=== PATIENT | male | born 1940 ===

== ENCOUNTER 2018-07-12 22:47 | Emergency (ER) | payer OTHER ==
[~2018-07-12] VITALS: Ht 165.1 cm; Wt 61.2 kg
[~2018-07-12 22:47] MED LIST: NABUMETONE750 MG PO
[2018-07-13] MEDS ORDERED: NABUMETONE750 MG PO (02:47)
[2018-07-13] MEDS ORDERED: DUI500 PO (02:47)
== END 2018-07-13 02:53 | disposition home or self-care (01) ==
LOC: ER 22:47
DX: S31.010A Laceration without foreign body of lower back and pelvis without penetration into retroperitoneum, initial encounter (principal); S20.211A Contusion of right front wall of thorax, initial encounter; S80.02XA Contusion of left knee, initial encounter; S79.811A Other specified injuries of right hip, initial encounter; W18.2XXA Fall in (into) shower or empty bathtub, initial encounter; Y93.E1 Activity, personal bathing and showering; Y92.012 Bathroom of single-family (private) house as the place of occurrence of the external cause; Y99.8 Other external cause status